=== PATIENT | male | born 1975 | race Caucasian/White ===

== ENCOUNTER 2020-02-13 18:44 | Emergency (ER) | payer OTHER ==
--- NOTE | 2020-02-13 18:50 | EDM.PDOC ---
ED HPI GENERAL MEDICAL PROBLEM - General Chief Complaint: Trauma Stated Complaint: FALL VIA NORTH Time Seen by Provider: 02/13/20 18:45 Source of Information: Reports: Patient, EMS Notes Reviewed, RN Notes Reviewed History Limitations: Reports: No Limitations - History of Present Illness INITIAL COMMENTS - FREE TEXT/NARRATIVE: Manish presents today via EMS after falling 8feet from his tree stand. Patient reports he fell onto his left side. Patient denies any LOC. Patient had NSL placed and dilaudid 4mg IV per EMS, C-collar and backboard. Patient arrives alert and oriented. left shoulder/ ribs Pain Score (Numeric/FACES): 5 - Related Data Allergies Allergy/AdvReac Type Severity Reaction Status Date / Time No Known Allergies Allergy Verified 02/13/20 19:20 Home Meds: Home Meds NK [No Known Home Meds] 02/13/20 [History] Past Medical History - Past Surgical History Other Respiratory Surgeries/Procedures: left rotator cuff repair ED ROS GENERAL - Review of Systems Review Of Systems: See Below Constitutional: Reports: No Symptoms HEENT: Reports: No Symptoms Respiratory: Reports: Shortness of Breath (due to pain, pain to left anterior and posterior ribs) Cardiovascular: Reports: No Symptoms Endocrine: Reports: No Symptoms GI/Abdominal: Reports: No Symptoms : Reports: No Symptoms Musculoskeletal: Reports: Other (left back pain) Skin: Reports: Other (abrasions to left fingers and left lower leg) Neurological: Denies: Confusion, Dizziness, Headache, Numbness, Tingling, Weakness Psychiatric: Reports: No Symptoms Hematologic/Lymphatic: Reports: No Symptoms Immunologic: Reports: No Symptoms ED EXAM, GENERAL - Physical Exam Exam: See Below Exam Limited By: No Limitations General Appearance: Alert, WD/WN, Moderate Distress Eye Exam: Bilateral Eye: EOMI, Normal Inspection, PERRL Ears: Normal External Exam, Normal Canal, Hearing Grossly Normal, Normal TMs Nose: Normal Inspection, Normal Mucosa, No Blood Throat/Mouth: Normal Inspection, Normal Lips, Normal Teeth, Normal Gums, Normal Oropharynx, Normal Voice, No Airway Compromise, Inflammation, Perioral Cyanosis Neck: Normal Inspection, Supple, Non-Tender, Full Range of Motion, Other (C- collar removed at 1900). No: Lymphadenopathy (R), Lymphadenopathy (L), Tender Lateral, Tender Midline Respiratory/Chest: Decreased Breath Sounds (REGINO, LLL), Accessory Muscle Use, Splinting (left ribs). No: Crackles, Rales, Rhonchi, Wheezing, Stridor, Pleural Rub, Prolonged Expiration Cardiovascular: No Edema, No Gallop, No Murmur, No Rub Peripheral Pulses: 4+: Radial (L), Radial (R), Dorsalis Pedis (L), Dorsalis Pedis (R) GI/Abdominal: Normal Bowel Sounds, Soft, Non-Tender, No Organomegaly, No Distention, No Abnormal Bruit, No Mass, Pelvis Stable. No: Guarding, Rigid, Rebound, Tender Extremities: Normal Inspection, Normal Range of Motion, Non-Tender, No Pedal Edema, Normal Capillary Refill Neurological: Alert, Oriented, Normal Cognition, Normal Reflexes, No Motor/Sensory Deficits Psychiatric: Anxious Skin Exam: Warm, Dry, Normal Color, No Rash, Other (abrasions to left lower leg, left fingers ) Lymphatic: No Adenopathy Course - Vital Signs Last Recorded V/S: Last Vital Signs Temp 35.5 C L 02/13/20 21:33 Pulse 111 H 02/13/20 21:48 Resp 20 02/13/20 21:48 BP 152/97 H 02/13/20 21:48 Pulse Ox 93 L 02/13/20 21:48 - Orders/Labs/Meds Orders: Active Orders 24 hr Category Date Time Status Gonzalez Catheter Insertion [Insert Urinary Catheter] [OM. Care 02/13/20 20:30 Ordered PC] Q24H Labs: Laboratory Tests 02/13/20 02/13/20 02/13/20 Range/Units 19:24 19:24 21:11 WBC 15.5 H (4.5-11.0) K/uL RBC 4.89 (4.30-5.90) M/uL Hgb 14.5 (12.0-15.0) g/dL Hct 43.4 (40.0-54.0) % MCV 89 (80-98) fL MCH 30 (27-31) pg MCHC 33 (32-36) % Plt Count 290 (150-400) K/uL Neut % (Auto) 86 H (36-66) % Lymph % (Auto) 8 L (24-44) % [place] % (Auto) 5 (2-6) % Eos % (Auto) 1 L (2-4) % Baso % (Auto) 0 (0-1) % Sodium 137 L (140-148) mmol/L Potassium 3.3 L (3.6-5.2) mmol/L Chloride 100 (100-108) mmol/L Carbon Dioxide 25 (21-32) mmol/L Anion Gap 15.3 H (5.0-14.0) mmol/L BUN 14 (7-18) mg/dL Creatinine 1.2 (0.8-1.3) mg/dL Est Cr Clr Drug Dosing 83.67 mL/min Estimated GFR (MDRD) > 60 (>60) Glucose 165 H (74-106) mg/dL Calcium 8.1 L (8.5-10.1) mg/dL Total Bilirubin 0.3 (0.2-1.0) mg/dL AST 41 H (15-37) U/L ALT 66 (12-78) U/L Alkaline Phosphatase 77 (46-116) U/L Total Protein 6.8 (6.4-8.2) g/dL Albumin 3.5 (3.4-5.0) g/dL Globulin 3.3 (2.3-3.5) g/dL Albumin/Globulin Ratio 1.1 L (1.2-2.2) Urine Color Yellow (YELLOW) Urine Appearance Clear (CLEAR) Urine pH 7.0 (5.0-8.0) Ur Specific [place] 1.015 (1.008-1.030) Urine Protein Negative (NEGATIVE) mg/dL Urine Glucose (UA) Negative (NEGATIVE) mg/dL Urine Ketones Negative (NEGATIVE) mg/dL Urine Occult Blood Negative (NEGATIVE) Urine Nitrite Negative (NEGATIVE) Urine Bilirubin Negative (NEGATIVE) Urine Urobilinogen 0.2 (0.2-1.0) EU/dL Ur Leukocyte Esterase Negative (NEGATIVE) Urine RBC Not seen (0-5) Urine WBC Not seen (0-5) Ur Epithelial Cells Not seen Urine Bacteria Not seen Patient lab work reviewed. Meds: Medications Discontinued Medications Generic Name Dose Route Start Last Admin Trade Name Freq PRN Reason Stop Dose Admin Hydromorphone HCl 1 mg 02/13/20 20:25 02/13/20 20:35 Dilaudid IVPUSH 02/13/20 20:26 1 mg ONETIME ONE Administration Sodium Chloride 100 mls @ 3 mls/sec 02/13/20 19:00 02/13/20 19:20 Normal Saline IV 3 mls/sec ASDIRECTED JALEESA Administration Iopamidol 100 ml 02/13/20 19:00 02/13/20 19:20 Isovue-300 (61%) IV 100 ml . DIRECTED JALEESA Administration Lidocaine HCl 10 ml 02/13/20 20:35 02/13/20 20:45 Xylocaine 2% Jelly MUCMEM 02/13/20 20:36 10 ml ONETIME ONE Administration Ondansetron HCl 4 mg 02/13/20 20:25 02/13/20 20:31 Zofran IVPUSH 02/13/20 20:26 4 mg ONETIME ONE Administration Sodium Chloride 10 ml 02/13/20 18:53 02/13/20 19:20 Saline Flush FLUSH 02/13/20 18:54 10 ml ONETIME ONE Administration - Radiology Interpretation Free Text/Narrative:: CT scan reviewed, radiologist telephoned with report, left scapular fracture, multiple left rib fractures, soft tissues emphysema. Radiologist report: Small left sided pneumothorax, soft tissues emphysema about the left chest wall and extending into the left lower neck. Trace left-sided hemothorax inferiorly. Small areas of lung parenchymal contusion involving the left upper lobe. Multiple left-sided rib fractures with few ribs fracture in more than once place. Fracture through the left 1st rib costochondral Junction. fracture through the right 1st rib costochondral junction anteriorly with small amount of adjacent soft tissues gas. acute mildly displace fracture of the left scapula. Subtle nondisplaced fracture of the left T3 transverse process adjacent to the fib fracture. Mild superior endplate depression of T3 may be more chronic. No abdominal or pelvic free fluid. - Re-Assessments/Exams Free Text/Narrative Re-Assessment/Exam: Case reviewed with Dr. Rausch, he agrees with plan of care. Patient willb e transferred to higher level of care due to multiple fractures and trauma. Patient remains alert, oriented, 95% on room air. 02/13/20 20:20 [facility] contacted for patient transfer. No beds available for trauma at this time. 2023 [facility] contacted. patient accepted per Dr. Traylor [facility] Emergency room for transfer. Patient and his family notified. Departure - Departure Time of Disposition: 20:35 Disposition: DC/Tfer to [facility] 02 Reason for Transfer *Q: Other (Trauma, multiple rib fractures, left scapula fracture) Condition: Fair Clinical Impression: Trauma of chest, Multiple fractures of ribs of left side, Left scapula fracture, Fracture of transverse process of thoracic vertebra Referrals: PCP,None [Primary Care Provider] - Forms: ED Department Discharge Additional Instructions: Transfer to [facility] emergency room. Sepsis Event Note (ED) - Focused Exam Vital Signs: Vital Signs Temp Pulse Resp BP Pulse Ox 02/13/20 21:48 111 H 20 152/97 H 93 L 02/13/20 21:33 35.5 C L 111 H 20 150/102 H 96 02/13/20 21:18 117 H 22 H 178/100 H 93 L 02/13/20 21:03 116 H 21 H 177/95 H 94 L 02/13/20 20:48 113 H 20 154/106 H 94 L 02/13/20 20:18 110 H 22 H 164/110 H 02/13/20 19:33 103 H 22 H 165/97 H 100 02/13/20 19:18 95 22 H 180/117 H 100 02/13/20 19:13 95 24 H 164/118 H 99 02/13/20 19:00 35.9 C L 89 24 H 171/122 H 100 02/13/20 18:54 90 24 H 166/111 H 100 - My Orders Last 24 Hours: My Active Orders 02/13/20 20:30 Gonzalez Catheter Insertion [Insert Urinary Catheter] [OM.PC] Q24H - Assessment/Plan Last 24 Hours: My Active Orders 02/13/20 20:30 Gonzalez Catheter Insertion [Insert Urinary Catheter] [OM.PC] Q24H Assessment:: Small left sided pneumothorax, soft tissues emphysema about the left chest wall and extending into the left lower neck. Trace left-sided hemothorax inferiorly. Small areas of lung parenchymal contusion involving the left upper lobe. Multiple left-sided rib fractures with few ribs fracture in more than once place. Fracture through the left 1st rib costochondral Junction. fracture through the right 1st rib costochondral junction anteriorly with small amount of adjacent soft tissues gas. acute mildly displace fracture of the left scapula. Subtle nondisplaced fracture of the left T3 transverse process adjacent to the fib fracture. Mild superior endplate depression of T3 may be more chronic. No abdominal or pelvic free fluid. Trauma of chest, Multiple fractures of ribs of left side, Left scapula fracture, Fracture of transverse process of thoracic vertebra Plan: Patient acceptance per Dr. Kelly [facility] emergency room. Patient transfer per ALS.
[2020-02-13] MEDS ORDERED: Sodium Chloride 0.9% 10 ML Syringe FLUSH ONE (18:53)
[2020-02-13] MEDS ORDERED: Sodium Chloride 0.9% 100 ML IV SCH (19:00)
[2020-02-13] MEDS ORDERED: Iopamidol 612 MG/ML 100 ML Bottle IV SCH (19:00)
[2020-02-13] MEDS ORDERED: Ondansetron 4 MG/2 ML SDV IVPUSH ONE (20:25)
[2020-02-13] MEDS ORDERED: HYDROmorphone 1 MG/ML Syringe IVPUSH ONE (20:25)
[2020-02-13] MEDS ORDERED: Lidocaine 2% Jelly 10 ML Urojet MUCMEM ONE (20:35)
--- NOTE | 2020-02-15 14:24 | CRLCT ---
HISTORY: Fall. TECHNIQUE: Intravenous contrast enhanced CT of the chest, abdomen and pelvis. 100 mL of Isovue-300 intravenous contrast administered. COMPARISON: No prior. FINDINGS: Chest: There is a small left-sided pneumothorax. Trace amount of high attenuation left pleural fluid inferiorly likely reflecting minimal hemothorax. Soft tissue emphysema is present about the left chest wall and left lower neck. There are a few areas of left upper lobe lung parenchymal injury with small pulmonary contusions. 6 mm lingular pulmonary nodule on image #61 of series 2. There is no right-sided pneumothorax or right lung infiltrate. 3 mm right lower lobe pulmonary nodule image #52 of series 2. - No acute traumatic aortic injury. No significant pericardial effusion. No enlarged mediastinal or hilar lymph nodes. - Multiple acute left-sided rib fractures. Some ribs are fractured in more than 1 location. Some fractures are mildly displaced while others are nondisplaced. There is a fracture of the left 1st costochondral junction with gas extending through the fracture and into the adjacent soft tissues. There are also fractures of the 2nd through 9th ribs. There is also a subtle nondisplaced fracture of the left T3 transverse process. Mild superior endplate compression fracture of T3 could be chronic. There is an acute fracture of the left scapular body which extends the scapular neck with minimal displacement. Right scapula is intact. There is no sternal fracture. On the right, there is mild malalignment of the 1st costochondral junction compatible with fracture. Tiny amount of adjacent soft tissue gas. ---- No acute liver parenchymal injury. No biliary ductal dilatation. There is fatty infiltration of liver. Gallbladder does not appear overly distended. No acute splenic parenchymal injury. Adrenal glands are unremarkable. No focal pancreatic abnormality. Symmetric nephrograms. No renal mass or hydronephrosis. No acute renal parenchymal injury. Urinary bladder is distended. - No small bowel obstruction. No appendicitis. No diverticulitis. No free fluid or free air. Small fat containing right inguinal hernia. No abdominal aortic aneurysm. - Bilateral chronic pars defects at L5 with grade 1 anterolisthesis of L5 on S1. There is no acute lumbar fracture. There degenerative changes within the lumbar spine otherwise. Degenerative changes of the sacroiliac joints. Chronic hip dysplasia is present on the left greater than right. No acute pelvic fracture. IMPRESSION: 1. Small left-sided pneumothorax. There is soft tissue emphysema about the left chest wall and extending into the left lower neck. Trace left-sided hemothorax inferiorly. 2. Small areas of lung parenchymal contusion involving the left upper lobe. 3. Multiple left-sided rib fractures with a few ribs fractured in more than one place. There is also a fracture through the left 1st rib costochondral junction. Fracture through the right 1st rib costochondral junction anteriorly with a small amount of adjacent soft tissue gas. 4. Acute mildly displaced fracture of the left scapula. 5. Subtle nondisplaced fracture of the left T3 transverse process adjacent to a rib fracture. The mild superior endplate depression of T3 may be more chronic. 6. No solid organ injury within the abdomen. 7. No abdominal or pelvic free fluid. No free intraperitoneal air. 8. Bilateral chronic pars defects at L5. No acute lumbar spine or acute pelvic fracture. 9. Other findings as detailed above. - Findings were called to Dr. Gupta. Dictated by Jordy Malone MD @ 02/13/2020 8:17:46 PM Please note that all CT scans at this facility use dose modulation, iterative reconstruction, and/or weight-based dosing when appropriate to reduce radiation dose to as low as reasonably achievable. Dictated by: Jordy Malone MD @ 02/13/2020 20:18:44 (Electronically Signed) Dictated by: Clemente Malone MD 02/13/20 at 2018 24 T: , Doc Number: [id number] Copies To: Marsha Gupta NP; PCP,None~ MTDD
== END 2020-02-13 22:10 ==
LOC: JP.ED 18:44
DX: S27.0XXA Traumatic pneumothorax, initial encounter (principal); S22.32XA Fracture of one rib, left side, initial encounter for closed fracture; S42.102A Fracture of unspecified part of scapula, left shoulder, initial encounter for closed fracture; S80.812A Abrasion, left lower leg, initial encounter; S22.031A Stable burst fracture of third thoracic vertebra, initial encounter for closed fracture; W17.89XA Other fall from one level to another, initial encounter
CPT/HCPCS: 36415; 51702; 71260; 74177; 76377; 80053; 81001; 85025; 96374; 96375; 99285; J1170; J2405; Q9967

== ENCOUNTER 2023-01-26 16:38 | Emergency (ER) | payer OTHER ==
[2023-01-26] MEDS ORDERED: Bacitracin Oint 1 GM U/D Packet TOP ONE (17:42)
[2023-01-26] MEDS ORDERED: Diphtheria,Pertussis(Acell),Tetanus Vaccine 0.5 ML Syringe IM ONE (17:42)
== END 2023-01-26 19:15 | disposition home or self-care (01) ==
LOC: JP.ED 16:38
DX: S81.812A Laceration without foreign body, left lower leg, initial encounter (principal); W45.8XXA Other foreign body or object entering through skin, initial encounter
CPT/HCPCS: 12002; 73590-26-LT; 73590-LT; 90471; 90715; 99283-25